=== PATIENT | male | born 1995 | race Caucasian/White ===

== ENCOUNTER 2016-08-24 21:31 | Emergency (ER) ==
[2016-08-24] MEDS ORDERED: LIDOCAINE 1 % AMP 5 ML (SUTURES) IM STA (21:34)
[2016-08-24] MEDS ORDERED: ROCEPHIN IM STA (21:34)
[2016-08-24 21:41] VITALS: BP 123/84; TEMP 98.2
--- NOTE | 2016-08-24 21:49 | ED.PDOC ---
General ED Provider: Dr. LAUREL CASTRO-ER Chief Complaint: Non-specific Complaint Stated Complaint: i was exposed to gonorrhea Time Seen by Physician: 21:35 Mode of Arrival: Walk-In Information Source: Patient Exam Limitations: No limitations Primary Care Provider: LINUS OCHOA Nursing and Triage Documentation Reviewed and Agree: Yes Complaint Exam - STD Male Complaint/Exam Onset/Duration: unknown Symptoms Are: Still present Timing: Intermittent Initial Severity: Mild Current Severity: Mild Location: Reports: Penis Character: Recent STD exposure Aggravating: Reports: None Alleviating: Reports: None Associated Signs and Symptoms: Reports: Dysuria. Denies: Penile sores, Scrotal pain, Scrotal swelling, Testicular pain, Testicular swelling Genitalia Exam: Present: Normal findings Differential Diagnoses: STD, Other Review of Systems - Review Of Systems Constitutional: Reports: No symptoms Eyes: Reports: No symptoms Ears, Nose, Mouth, Throat: Reports: No symptoms Respiratory: Reports: No symptoms Cardiac: Reports: No symptoms GI: Reports: No symptoms : Reports: Dysuria, Frequency, Urgency Musculoskeletal: Reports: No symptoms Skin: Reports: No symptoms Neurological: Reports: No symptoms Endocrine: Reports: Intolerance to heat Hematologic/Lymphatic: Reports: No symptoms All Other Systems: Reviewed and Negative Past Medical History - Past Medical History Previously Healthy: Yes Endocrine: Reports: None Cardiovascular: Reports: None Respiratory: Reports: None Hematological: Reports: None Gastrointestinal: Reports: None Genitourinary: Reports: None Neuro/Psych: Reports: None Musculoskeletal: Reports: None Cancer: Reports: None - Surgical History General Surgical History: Reports: Unknown - Family History Family History: Reports: Unknown - Social History Smoking Status: Never smoker Hx Substance Use: No Alcohol Screening: Occasionally Lives: With family - Immunizations Tetanus Shot up to Date: Yes Physical Exam - Physical Exam Appearance: Well-appearing, No pain distress, Well-nourished Eyes: ANGELA, EOMI, Conjunctiva clear ENT: Ears normal, Nose normal, Oropharynx normal Neck: Supple Respiratory: Airway patent, Breath sounds clear, Breath sounds equal, Respirations nonlabored Cardiovascular: RRR, Pulses normal, No rub, No murmur GI/: Soft, Nontender, No masses, Bowel sounds normal, No Organomegaly Musculoskeletal: Normal strength, ROM intact, No edema, No calf tenderness Skin: Warm, Dry, Normal color Neurological: Sensation intact, Motor intact, Reflexes intact, Cranial nerves intact, Alert, Oriented Psychiatric: Affect appropriate, Mood appropriate Critical Care Note - Critical Care Note Total Time (mins): 0 Course - Course Orders, Labs, Meds: Orders Category Date Time Status CHLAMYDIA/GC AMPLIFICATION Stat LAB 08/24/16 21:33 Ordered RAPID HIV SCREEN Stat LAB 08/24/16 21:34 Ordered RPR [RAPID PLASMA REAGIN] Stat LAB 08/24/16 21:34 Ordered URINALYSIS C & S IF INDICATED Stat LAB 08/24/16 21:34 Uncollected Ceftriaxone Sodium [Rocephin] MEDS 08/24/16 21:34 Discontinued 250 mg IM ONCE STA Lidocaine HCl/Pf [Lidocaine 1 % Amp 5 ml (Sutures)] MEDS 08/24/16 21:34 Discontinued 0.9 ml IM ONCE STA Medications Discontinued Medications Generic Name Dose Route Start Last Admin Trade Name Abiodunq PRN Reason Stop Dose Admin Ceftriaxone Sodium 250 mg 08/24/16 21:34 Rocephin IM 08/24/16 21:35 ONCE STA Lidocaine HCl 0.9 ml 08/24/16 21:34 Lidocaine 1 % Amp 5 Ml (Sutures) IM 08/24/16 21:35 ONCE STA Vital Signs: Temp Pulse Resp BP Pulse Ox 08/24/16 21:33 98.2 F 91 H 18 123/84 98 Departure - Departure Time of Disposition: 21:47 Disposition: HOME SELF-CARE Discharge Problem: Urethritis Instructions: Nonspecific Urethritis in Men (ED) Condition: Good Pt referred to PMD for follow-up: Yes Additional Instructions: doxycycline 100mg bid x 10 days==abstinence until results are known--f/u with pcp this week for test results Allergies/Adverse Reactions: Allergies No Known Allergies Allergy (Verified 08/24/16 21:39) Home Medications: Ambulatory Orders 1 [No Reported Medications] 07/11/15 Disposition Discussed With: Patient
[2016-08-24 22:07] LABS: BILIRUBIN,URINE Negative (NEGATIVE); KETONES,URINE Negative (NEGATIVE); LEUKOCYTE ESTERASE ,URINE Negative (NEGATIVE); NITRITE,URINE Negative (NEGATIVE); PH,URINE 6.5 (5-9); PROTEIN,URINE Negative (NEGATIVE); URINE, BLOOD Negative (NEGATIVE)
[2016-08-24 22:08] LABS: ADD URINE MICROSCOPIC NO
[2016-08-24 22:08] LABS: HIV INTERNAL QC INTERNAL QC VALID; HIV-1 p24 ANTIGEN SCREEN NEGATIVE (NEGATIVE); HIV-1/2 ANTIBODY SCREEN NEGATIVE (NEGATIVE)
== END 2016-08-24 23:08 | disposition home or self-care (01) ==
LOC: ED 21:31
DX: N34.2 Other urethritis (principal)
CPT/HCPCS: 36415; 81001; 86592; 87800; 96372; 99283

== ENCOUNTER 2017-10-27 09:24 | Emergency (ER) ==
[2017-10-27 09:35] VITALS: BP 133/70; TEMP 97.2; BMI 20.9
--- NOTE | 2017-10-27 09:39 | ED.PDOC ---
General ED Provider: Dr. LAUREL COLLINS MD Chief Complaint: Urinary Problem Stated Complaint: delacruz after i urinate Time Seen by Physician: 09:45 (some mild lower back pain also) Mode of Arrival: Walk-In Information Source: Patient Exam Limitations: No limitations Primary Care Provider: LINUS OCHOA Referred to ED by: Other Nursing and Triage Documentation Reviewed and Agree: Yes Reviewed sepsis parameters & appropriate labs ordered?: Yes System Inflammatory Response Syndrome: Not Applicable Sepsis Protocol: For patient's 13 years and over: Temp is 96.8 and below OR 101 and greater Pulse >90 BPM Resp >20/minute Acutely Altered Mental Status Are patient's symptoms suggestive of a new infection, such as: -Pneumonia -Skin, Soft Tissue -Endocarditis -UTI -Bone, Joint Infection -Implantable Device -Acute Abdominal Infection -Wound Infection -Meningitis -Blood Stream Catheter Infection -Unknown System Inflammatory Response Syndrome: Not Applicable Complaint Exam - STD Male Complaint/Exam Onset/Duration: day or so Symptoms Are: Still present Timing: Intermittent Initial Severity: Mild Current Severity: Mild Location: Reports: Right (lower back L-3 level) Aggravating: Reports: None Alleviating: Reports: None Review of Systems - Review Of Systems Constitutional: Reports: No symptoms Eyes: Reports: No symptoms Ears, Nose, Mouth, Throat: Reports: No symptoms Respiratory: Reports: No symptoms Cardiac: Reports: No symptoms GI: Reports: No symptoms : Reports: Burning Musculoskeletal: Reports: Back pain Skin: Reports: No symptoms Neurological: Reports: No symptoms Endocrine: Reports: No symptoms Hematologic/Lymphatic: Reports: No symptoms All Other Systems: Reviewed and Negative Past Medical History - Past Medical History Previously Healthy: Yes Endocrine: Reports: None Cardiovascular: Reports: None Respiratory: Reports: None Hematological: Reports: None Gastrointestinal: Reports: None Genitourinary: Reports: None Neuro/Psych: Reports: None Musculoskeletal: Reports: None Cancer: Reports: None - Surgical History General Surgical History: Reports: Unknown - Family History Family History: Reports: Unknown - Social History Smoking Status: Never smoker Hx Substance Use: No Alcohol Screening: Occasionally - Immunizations Tetanus Shot up to Date: Yes Physical Exam - Physical Exam Appearance: Well-appearing, No pain distress, Well-nourished Ill-appearing: None Pain Distress: None Eyes: ANGELA, EOMI, Conjunctiva clear ENT: Ears normal, Nose normal, Oropharynx normal Respiratory: Airway patent, Breath sounds clear, Breath sounds equal, Respirations nonlabored Cardiovascular: RRR, Pulses normal, No rub, No murmur GI/: Soft, Nontender, No masses, Bowel sounds normal, No Organomegaly Musculoskeletal: Normal strength, ROM intact, No edema, No calf tenderness Skin: Warm, Dry, Normal color Neurological: Sensation intact, Motor intact, Reflexes intact, Cranial nerves intact, Alert, Oriented Psychiatric: Affect appropriate, Mood appropriate Critical Care Note - Critical Care Note Total Time (mins): 0 Course - Course Orders, Labs, Meds: Lab Review 10/27/17 09:39 Urine Color Yellow Urine Clarity Clear Urine pH 6.5 Ur Specific [place] 1.025 Urine Protein Negative Urine Glucose (UA) Negative Urine Ketones Negative Urine Blood Negative Urine Nitrite Negative Urine Bilirubin Negative Urine Urobilinogen 0.2 Ur Leukocyte Esterase Trace Urine Microscopic RBC 10-20 Urine Microscopic WBC 5-10 Ur Squamous Epith Cells Not present Amorphous Sediment Trace Urine Bacteria Trace Orders Category Date Time Status URINALYSIS C & S IF INDICATED Stat LAB 10/27/17 09:39 Completed URINE CULTURE Stat LAB 10/27/17 10:25 Received Vital Signs: Temp Pulse Resp BP Pulse Ox 10/27/17 09:25 97.2 F L 61 20 133/70 98 Departure - Departure Time of Disposition: 10:50 Disposition: HOME SELF-CARE Discharge Problem: UTI (urinary tract infection) Condition: Good Pt referred to PMD for follow-up: Yes IPMP verified?: No Allergies/Adverse Reactions: Allergies No Known Allergies Allergy (Verified 10/27/17 09:30) Home Medications: Ambulatory Orders 1 [No Reported Medications] 07/11/15
== END 2017-10-27 11:00 | disposition home or self-care (01) ==
LOC: ED 09:24
DX: N39.0 Urinary tract infection, site not specified (principal)
CPT/HCPCS: 81001; 87086; 99283